=== PATIENT | male | born 1950 | race Caucasian/White ===

== ENCOUNTER 2020-11-22 06:05 | Emergency (ER) | payer OTHER ==
[~2020-11-22 06:05] MED LIST: ALLERGY10 MG PO; ASPIRIN CHEWABL81 MG PO; CARDIZEM CD120 MG PO; CLONAZEPAM0.5 MG PO; COREG25 MG PO; CRESTOR10 MG PO; CRESTOR40 MG PO; ELIQUIS2.5 MG PO; FLONASE ALLER15.8 ML; FUROSEMIDE 20MG20 MG PO; HYDRALAZINE 10M10 MG PO; ISOSORBIDE DINI10 MG PO; LEVAQUIN500 MG PO; MUCINEX 600MG600 MG PO; NEXAFED30 MG PO; OMEPRAZOLE40 MG PO; OS-CAL+D500 MG PO; PREDNISONE 10MG10 MG PO; PROTONIX 40MG T40 MG PO; PROVENTIL HFA6.7 GM INH; SERTRALINE HCL100 MG PO; SINGULAIR10 MG PO; SPIRIVA18 MCG INH; SYMBICORT 80-10.2 GM INH; SYMBICORT INHALER; VENTOLIN (2.5 MG/3 M INH; VENTOLIN HFA IN18 GM INH; ZOLOFT25 MG PO; ZYRTEC10 M3 PO
[2020-11-22 06:23] LABS: BASOPHIL 0.2 % (0-2); EOSINOPHIL 0.2 % (0-7); HCT 35.2 % (42.0-52.0); HGB 9.8 g/dl (13.2-18.0); LYMPHOCYTE 2.9 % (15-48); MCH 18.2 pg (25.0-31.0); MCHC 27.8 g/dL (32.0-36.0); MCV 65.5 fL (78.0-100.0); MONOCYTE 4.3 % (0-12); MPV 9.6 fL (6.0-9.5); NEUTROPHIL 91.8 % (41-80); NRBC 0; PLT 293 K/uL (150-400); RBC 5.37 M/uL (4.70-6.00); RDW 19.3 % (11.5-14.0)
[2020-11-22 06:44] LABS: ALBUMIN 3.6 g/dL (3.4-5.0); BILIRUBIN - TOTAL 1.1 mg/dL (0.2-1.0); GLOBULIN (CALCULATION) 3.7 g/dL; POTASSIUM 4.4 mmol/L (3.5-5.1); TOTAL PROTEIN 7.3 g/dL (6.4-8.2)
[2020-11-22 06:51] LABS: WBC 19.3 K/uL (4.0-10.5)
[2020-11-22 06:57] LABS: INR 1.79 (0.9-1.2); PROTHROMBIN TIME 19.8 SECONDS (11.4-13.6)
[2020-11-22 06:58] LABS: PTT 40.8 SECONDS (22.2-34.7)
[2020-11-22 06:59] LABS: C-REACTIVE PROTEIN 1.8 mg/dL (<=0.90)
[2020-11-22 07:10] LABS: LACTIC ACID 2.5 mmol/L (0.4-1.9)
[2020-11-22 07:41] LABS: CORONAVIRUS 2019 SARS-COV-2 NEGATIVE (NEGATIVE); INFLUENZA A NAA NEGATIVE (NEGATIVE)
[2020-11-22 08:06] LABS: BILIRUBIN 1+ mg/dL (NEGATIVE); BLOOD NEGATIVE Ery/uL (NEGATIVE); CLARITY CLEAR (CLEAR); COLOR YELLOW (YELLOW); GLUCOSE (U) NORMAL (NORMAL); LEUKOCYTES NEGATIVE Leu/uL (NEGATIVE); NITRITE NEGATIVE (NEGATIVE); PROTEIN TRACE (LOW) mg/dL (NEGATIVE); SPECIFIC GRAVITY 1.015 (1.001-1.030)
[2020-11-22 08:13] LABS: SPERM PRESENT
[2020-11-22 08:15] LABS: MUCOUS TRACE; SQUAMOUS EPITHELIAL CELLS RARE
[2020-11-22 08:18] LABS: BACTERIA TRACE
[2020-11-22 08:19] LABS: GRANULAR CASTS TRACE
== END 2020-11-22 12:05 | disposition other institution (70) ==
LOC: FER 06:05
PROVIDERS: Student in an Organized Health Care Education/Training Program
DX: J44.1 Chronic obstructive pulmonary disease with (acute) exacerbation (principal); R65.11 Systemic inflammatory response syndrome (SIRS) of non-infectious origin with acute organ dysfunction; J96.01 Acute respiratory failure with hypoxia; R91.1 Solitary pulmonary nodule; I49.3 Ventricular premature depolarization; I48.91 Unspecified atrial fibrillation; I25.2 Old myocardial infarction; I11.0 Hypertensive heart disease with heart failure; I50.9 Heart failure, unspecified; I25.10 Atherosclerotic heart disease of native coronary artery without angina pectoris; K21.9 Gastro-esophageal reflux disease without esophagitis; E78.5 Hyperlipidemia, unspecified; Z95.5 Presence of coronary angioplasty implant and graft; Z95.0 Presence of cardiac pacemaker; Z88.0 Allergy status to penicillin; Z20.822 Contact with and (suspected) exposure to COVID-19
CPT/HCPCS: 36415; 36600; 71045; 71275; 80053; 81001; 82553; 82803; 83605; 83690; 83880; 84145; 84484; 85025; 85610; 85730; 86140; 87040; 87077; 87088; 87186; 93005; 94640; 94664; J2930; J3370; J7050; Q9967; U0002

== ENCOUNTER 2021-03-16 18:34 | Inpatient (IN) | payer MEDICARE ==
[~2021-03-16] VITALS: Ht 170.2 cm; Wt 79.8 kg
[2021-03-16 21:01] LABS: BASOPHIL 0.6 % (0-2); EOSINOPHIL 3.4 % (0-7); HCT 41.2 % (42.0-52.0); HGB 12.3 g/dl (13.2-18.0); LYMPHOCYTE 6.1 % (15-48); MCH 24.9 pg (25.0-31.0); MCHC 29.9 g/dL (32.0-36.0); MCV 83.4 fL (78.0-100.0); MONOCYTE 9.8 % (0-12); MPV 10.2 fL (6.0-9.5); NEUTROPHIL 79.6 % (41-80); NRBC 0; PLT 154 K/uL (150-400); RBC 4.94 M/uL (4.70-6.00); RDW 17.3 % (11.5-14.0)
[2021-03-16 21:15] LABS: ALBUMIN 3.2 g/dL (3.4-5.0); BILIRUBIN - TOTAL 0.7 mg/dL (0.2-1.0); CREATININE 0.82 mg/dL (0.67-1.17); GLOBULIN (CALCULATION) 3.8 g/dL; POTASSIUM 3.8 mmol/L (3.5-5.1)
[2021-03-17 02:10] LABS: BILIRUBIN NEGATIVE (NEGATIVE); BLOOD NEGATIVE Ery/uL (NEGATIVE); CLARITY CLEAR (CLEAR); COLOR YELLOW (YELLOW); GLUCOSE (U) NORMAL (NORMAL); LEUKOCYTES NEGATIVE Leu/uL (NEGATIVE); NITRITE NEGATIVE (NEGATIVE); PROTEIN NEGATIVE (NEGATIVE); pH 6.5 (5.0-9.0)
[2021-03-17 04:16] LABS: BASOPHIL 0.4 % (0-2); EOSINOPHIL 0.2 % (0-7); HCT 41.9 % (42.0-52.0); HGB 12.2 g/dl (13.2-18.0); LYMPHOCYTE 5.4 % (15-48); MCH 24.5 pg (25.0-31.0); MCHC 29.1 g/dL (32.0-36.0); MCV 84.3 fL (78.0-100.0); MONOCYTE 1.5 % (0-12); MPV 10.2 fL (6.0-9.5); NRBC 0; PLT 125 K/uL (150-400); RBC 4.97 M/uL (4.70-6.00); RDW 17.4 % (11.5-14.0); WBC 5.3 K/uL (4.0-10.5)
[2021-03-17 04:23] LABS: NEUTROPHIL 92.1 % (41-80)
[2021-03-17 04:46] LABS: BILIRUBIN - TOTAL 0.5 mg/dL (0.2-1.0); BUN/CREAT RATIO (CALC) 22.2 RATIO; CREATININE 0.9 mg/dL (0.67-1.17); GLOBULIN (CALCULATION) 3.8 g/dL; TOTAL PROTEIN 6.8 g/dL (6.4-8.2)
[2021-03-17] MEDS ORDERED: ELIQUIS5 MG PO (05:43)
[2021-03-17] MEDS ORDERED: K-DUR20 MEQ PO (05:43)
[2021-03-17] MEDS ORDERED: CRESTOR40 M1 PO (05:44)
[2021-03-17] MEDS ORDERED: ZOLOFT50 MG PO (05:44)
[2021-03-17] MEDS ORDERED: IRON325 M1 PO (05:44)
[2021-03-17] MEDS ORDERED: PROTONIX 40MG T40 MG PO (05:45)
[2021-03-17] MEDS ORDERED: ALDACTONE25 MG PO (05:45)
[2021-03-17] MEDS ORDERED: COREG25 MG PO (05:45)
[2021-03-18 05:49] LABS: BASOPHIL 0.1 % (0-2); EOSINOPHIL 0 % (0-7); HCT 39.8 % (42.0-52.0); HGB 11.4 g/dl (13.2-18.0); LYMPHOCYTE 4.1 % (15-48); MCH 24.5 pg (25.0-31.0); MCHC 28.6 g/dL (32.0-36.0); MCV 85.4 fL (78.0-100.0); MONOCYTE 5.7 % (0-12); MPV 10.3 fL (6.0-9.5); NEUTROPHIL 89.6 % (41-80); NRBC 0; PLT 154 K/uL (150-400); RBC 4.66 M/uL (4.70-6.00); RDW 17.2 % (11.5-14.0)
[2021-03-18 06:09] LABS: INR 1.09 (0.9-1.2); PROTHROMBIN TIME 13.5 SECONDS (11.8-13.4)
[2021-03-18 06:31] LABS: ALBUMIN 2.9 g/dL (3.4-5.0); BILIRUBIN - TOTAL 0.3 mg/dL (0.2-1.0); BUN/CREAT RATIO (CALC) 22.4 RATIO; C-REACTIVE PROTEIN 1.6 mg/dL (<=0.90); CREATININE 0.85 mg/dL (0.67-1.17); GLOBULIN (CALCULATION) 3.7 g/dL; MAGNESIUM 2.1 mg/dL (1.8-2.4); POTASSIUM 4.5 mmol/L (3.5-5.1); TOTAL PROTEIN 6.6 g/dL (6.4-8.2)
[2021-03-18 06:38] LABS: WBC 13.7 K/uL (4.0-10.5)
[2021-03-19] MEDS ORDERED: DEXAMETHASONE 2M2 MG PO (08:38)
[2021-03-19] MEDS ORDERED: AZITHROMYCIN250 MG PO (08:38)
[2021-03-19] MEDS ORDERED: VITAMIN D325 MC1 PO (08:38)
[2021-03-19] MEDS ORDERED: SINGULAIR10 MG PO (08:38)
[2021-03-19] MEDS ORDERED: ROBITUSSIN DM10 ML PO (10:41)
[2021-03-19] MEDS ORDERED: TESSALON PERLE100 M1 PO (10:41)
== END 2021-03-19 13:25 | disposition home health service (06) | DRG 177 ==
LOC: FER 18:34 → FTCU 22:40
PROVIDERS: Emergency Medicine; Nurse Practitioner; ADMIT Internal Medicine
PROC: 8E0ZXY6 Isolation (ICD-10-PCS; 2021-03-17)
PROC: XW033E5 Introduction of Remdesivir Anti-infective into Peripheral Vein, Percutaneous Approach, New Technology Group 5 (ICD-10-PCS; principal; 2021-03-18)
DX: U07.1 COVID-19 (principal); J96.01 Acute respiratory failure with hypoxia; I42.9 Cardiomyopathy, unspecified; J43.9 Emphysema, unspecified; I25.10 Atherosclerotic heart disease of native coronary artery without angina pectoris; F32.9 Major depressive disorder, single episode, unspecified; F41.9 Anxiety disorder, unspecified; K21.9 Gastro-esophageal reflux disease without esophagitis; I73.9 Peripheral vascular disease, unspecified; I50.9 Heart failure, unspecified; E78.5 Hyperlipidemia, unspecified; I48.0 Paroxysmal atrial fibrillation; Z87.442 Personal history of urinary calculi; Z95.810 Presence of automatic (implantable) cardiac defibrillator; Z98.890 Other specified postprocedural states; Z88.0 Allergy status to penicillin; Z79.01 Long term (current) use of anticoagulants; Z79.899 Other long term (current) drug therapy
CPT/HCPCS: 36415; 71275; 80053; 81003; 82728; 83615; 83735; 84484; 85025; 85379; 85610; 86140; 87040; 93005; 94640; 94664; 94762; C9399; J0456; J0696; J1100; J2930; J7030; J7050; J8540; Q9967; U0002